=== PATIENT | male | born 1975 | race Caucasian/White ===

== ENCOUNTER 2024-10-07 14:44 | Inpatient (IN) | payer SELFPAY ==
--- NOTE | 2024-10-07 15:16 | ED ---
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 Patient typically drinks 1/5 a day. Last drink this morning. Patient denies any history of seizures or DTs with withdrawals. Patient was attempting to check into [facility] today and was found to be intoxicated and hypertensive at 210/122. Patient was given 0.3 mg of Catapres at 1:50 PM. Patient denies any current pain. Denies any SI, HI or drug use. (Carmen Langston) This is a 49 male presenting with significant alcohol intoxication sent to us from [facility] for evaluation regarding pending withdrawals DTs and history of seizure. Significant intoxication here in the ER and severely elevated blood pressure (Joe Cordova) - Related Data Home Medications Medication Instructions Recorded Confirmed Losartan [Cozaar] 50 mg PO DAILY 10/07/24 10/07/24 QUEtiapine [SEROquel] 100 mg PO HS 10/07/24 10/07/24 cloNIDine HCL [Catapres] 0.1 mg PO QID PRN 10/07/24 10/07/24 lamoTRIgine [LaMICtal] 50 mg PO BID 10/07/24 10/07/24 Previous Rx's Medication Instructions Recorded Folic Acid 1 mg PO DAILY 30 Days #30 tab 10/09/24 Thiamine [Vitamin B-1] 100 mg PO DAILY 30 Days #30 tablet 10/09/24 Allergies Allergy/AdvReac Type Severity Reaction Status Date / Time Penicillins Allergy Anaphylaxis Verified 10/07/24 16:38 Review of Systems ROS Other: All systems not noted in ROS Statement are negative. <CurtisrussCarmen - Last Filed: 10/07/24 15:15> ROS Other: All systems not noted in ROS Statement are negative. <Joe Cordova - Last Filed: 10/09/24 21:39> ROS Statement: Those systems with pertinent positive or pertinent negative responses have been documented in the HPI. Past Medical History Past Medical History: Hypertension Past Surgical History: No Surgical Hx Reported Smoking Status: Current every day smoker Past Alcohol Use History: Abuse <CurtisrussCarmen - Last Filed: 10/07/24 15:15> General Exam Limitations: no limitations <ChrisnitaCarmen - Last Filed: 10/07/24 15:15> General appearance: alert, in no apparent distress, anxious Head exam: Present: atraumatic, normocephalic, normal inspection Eye exam: Present: normal appearance, PERRL, EOMI. Absent: scleral icterus, conjunctival injection, periorbital swelling ENT exam: Present: normal exam, mucous membranes moist Neck exam: Present: normal inspection. Absent: tenderness, meningismus, lymphadenopathy Respiratory exam: Present: normal lung sounds bilaterally. Absent: respiratory distress, wheezes, rales, rhonchi, stridor Cardiovascular Exam: Present: normal rhythm, tachycardia, normal heart sounds. Absent: systolic murmur, diastolic murmur, rubs, gallop, clicks GI/Abdominal exam: Present: soft, normal bowel sounds. Absent: distended, tenderness, guarding, rebound, rigid Extremities exam: Present: normal inspection, full ROM, normal capillary refill. Absent: tenderness, pedal edema, joint swelling, calf tenderness Back exam: Present: normal inspection Neurological exam: Present: alert, oriented X3, CN II-XII intact Psychiatric exam: Present: normal affect, normal mood Skin exam: Present: warm, dry, intact, normal color. Absent: rash <Joe Cordova - Last Filed: 10/09/24 21:39> - General Exam Comments Initial Comments: Visual Physical Exam Vital signs reviewed General: Well-appearing, nontoxic, no acute distress. Intoxicated Head: Normocephalic, atraumatic Eyes: PERRLA, EOMI ENT: Airway patent Chest: Nonlabored breathing Skin: No visual rash, normal skin tone Neuro: Alert and oriented 3 Musculoskeletal: No gross abnormalities (Carmen Langston) Course <Joe Cordova - Last Filed: 10/09/24 21:39> Vital Signs 10/07/24 10/07/24 10/07/24 14:49 15:53 17:58 Temperature 98.2 F Pulse Rate 118 H 120 H 92 Respiratory 20 18 18 Rate Blood Pressure 144/91 141/89 131/105 O2 Sat by Pulse 97 95 96 Oximetry 10/07/24 10/07/24 10/08/24 18:24 20:51 00:01 Temperature Pulse Rate 102 H 104 H 95 Respiratory 18 18 14 Rate Blood Pressure 137/101 111/73 119/83 O2 Sat by Pulse 98 94 L 95 Oximetry 10/08/24 10/08/24 10/08/24 02:07 03:04 04:39 Temperature Pulse Rate 83 73 88 Respiratory 16 16 16 Rate Blood Pressure 112/80 145/95 137/94 O2 Sat by Pulse 95 98 97 Oximetry 10/08/24 10/08/24 10/08/24 05:20 06:28 07:20 Temperature Pulse Rate 85 89 95 Respiratory 16 16 18 Rate Blood Pressure 133/88 120/92 132/93 O2 Sat by Pulse 96 96 97 Oximetry 10/08/24 10/08/24 11:42 13:28 Temperature 98.8 F Pulse Rate 105 H Respiratory 18 18 Rate Blood Pressure 149/91 170/94 O2 Sat by Pulse 98 Oximetry - Reevaluation(s) Reevaluation #1: 10/07/24 19:04 Medical records reviewed (Joe Cordova) Reevaluation #2: 10/07/24 19:04 Patient symptoms relatively improved (Joe Cordova) Reevaluation #3: 10/07/24 19:04 Patient informed of results questions answered (Joe Cordova) Reevaluation #4: Was pt. sent in by a medical professional or institution (, PA, CLIP ON SUNGLASSES INSPECTOR, urgent ca re, hospital, or skilled nursing...) When possible be specific @ -no Did you speak to anyone other than the patient for history (EMS, parent, family, police, friend...)? What history was obtained from this source @ -no Did you review nursing and triage notes (agree or disagree)? Why? @ -agree Are old charts reviewed (outside hosp., previous admission, EMS record, old EKG, old radiological studies, urgent care reports/EKG's, skilled nursing records)? Report findings @ -yes Differential Diagnosis (chest pain, altered mental status, abdominal pain women, abdominal pain men, vaginal bleeding, weakness, fever, dyspnea, syncope, headache, dizziness, GI bleed, back pain, seizure, CVA, palpatations, mental health, musculoskeletal)? @ -prior EKG interpreted by me (3pts min.). @ -no X-rays interpreted by me (1pt min.). @ -no CT interpreted by me (1pt min.). @ -no U/S interpreted by me (1pt. min.). @ -no What testing was considered but not performed or refused? (CT, X-rays, U/S, labs)? Why? @ -none What meds were considered but not given or refused? Why? @ -none Did you discuss the management of the patient with other professionals (professionals i.e. , PA, CLIP ON SUNGLASSES INSPECTOR, lab, RT, psych nurse, social insurance administrator, beer runner, teacher, chief juvenile probation officer, manager case)? Give summary @ -no Was smoking cessation discussed for >3mins.? @ -no Was critical care preformed (if so, how long)? @ -no Were there social determinants of health that impacted care today? How? (Homelessness, low income, unemployed, alcoholism, drug addiction, transportation, low edu. Level, literacy, decrease access to med. care, alf, rehab)? @ -none Was there de-escalation of care discussed even if they declined (Discuss DNR or withdrawal of care, Hospice)? DNR status @ -no What co-morbidities impacted this encounter? (DM, HTN, Smoking, COPD, CAD, Cancer, CVA, ARF, Chemo, Hep., AIDS, mental health diagnosis, sleep apnea, morbid obesity)? @ -none Was patient admitted / discharged? Hospital course, mention meds given and route, prescriptions, significant lab abnormalities, going to OR and other pertinent info. @ - 49 male to the ER will be admitted for altered mental status alcohol withdrawal alcohol intoxication Discharge Undiagnosed new problem with uncertain prognosis? @ -no Drug Therapy requiring intensive monitoring for toxicity (Heparin, Nitro, Insulin, Cardizem)? @ -no Were any procedures done? @ -no Diagnosis/symptom? @ -Alcohol intoxication impending withdrawal Acute, or Chronic, or Acute on Chronic? @ -Acute Uncomplicated (without systemic symptoms) or Complicated (systemic symptoms)? @ -Complicated Side effects of treatment? @ -no Exacerbation, Progression, or Severe Exacerbation? @ -exacerbation Poses a threat to life or bodily function? How? (Chest pain, [place], [place], pneumonia, PE, COPD, DKA, ARF, appy, cholecystitis, CVA, Diverticulitis, Homicidal, Suicidal, threat to staff... and all critical care pts) @ -yes significant intoxication or withdrawal (Joe Cordova) Reevaluation #5: Differential Altered Mental Status: Hypoglycemia, DKA, hypercapnia, ETOH, overdose, CO poisoning, trauma, myxedema coma, HTN encephalopathy, infection, encephalitis, psychosis, intercranial hemorrhage, hepatic encephalopathy, meningitis, CVA, this is not meant to be an all-inclusive list (Joe Cordova) - Consultations Consultation #1: Spoke with [facility] who agrees to admit this patient (Joe Cordova) Medical Decision Making <Carmen Langston - Last Filed: 10/07/24 15:15> - Lab Data Result diagrams: 10/09/24 02:39 10/09/24 02:39 <Joe Cordova - Last Filed: 10/09/24 21:39> - Medical Decision Making I performed the quick note portion of this chart. Electronically signed by Carmen Langston PA-C (Carmen Langston) 49 male to the ER will be admitted for altered mental status alcohol withdrawal alcohol intoxication (Joe Cordova) - Lab Data Lab Results 10/07/24 10/07/24 10/07/24 Range/Units 15:30 15:30 15:39 WBC 8.9 (3.8-10.6) k/uL RBC 5.00 (4.30-5.90) m/uL Hgb 16.4 (13.0-17.5) gm/dL Hct 48.5 (39.0-53.0) % MCV 97.1 (80.0-100.0) fL MCH 32.8 (25.0-35.0) pg MCHC 33.7 (31.0-37.0) g/dL RDW 12.3 (11.5-15.5) % Plt Count 421 (150-450) k/uL MPV 6.6 Neutrophils % 63 % Lymphocytes % 29 % Monocytes % 4 % Eosinophils % 1 % Basophils % 1 % Neutrophils # 5.6 (1.3-7.7) k/uL Lymphocytes # 2.6 (1.0-4.8) k/uL Monocytes # 0.4 (0-1.0) k/uL Eosinophils # 0.1 (0-0.7) k/uL Basophils # 0.1 (0-0.2) k/uL Sodium 140 (137-145) mmol/L Potassium 4.2 (3.5-5.1) mmol/L Chloride 108 H (98-107) mmol/L Carbon Dioxide 23 (22-30) mmol/L Anion Gap 9 mmol/L BUN 11 (9-20) mg/dL Creatinine 1.10 (0.66-1.25) mg/dL Est GFR (CKD-EPI)AfAm >90 (>60 ml/min/1.73 sqM) Est GFR (CKD-EPI)NonAf 78 (>60 ml/min/1.73 sqM) Glucose 113 H (74-99) mg/dL Calcium 8.6 (8.4-10.2) mg/dL Magnesium 1.8 (1.6-2.3) mg/dL Total Bilirubin 0.6 (0.2-1.3) mg/dL AST 35 (17-59) U/L ALT 25 (4-49) U/L Alkaline Phosphatase 62 (38-126) U/L Total Protein 7.1 (6.3-8.2) g/dL Albumin 4.4 (3.5-5.0) g/dL Urine Opiates Screen Not Detected (NotDetected) Ur Oxycodone Screen Not Detected (NotDetected) Urine Methadone Screen Not Detected (NotDetected) Ur Barbiturates Screen Not Detected (NotDetected) U Tricyclic Antidepress Not Detected (NotDetected) Ur Phencyclidine Scrn Not Detected (NotDetected) Ur Amphetamines Screen Not Detected (NotDetected) U Methamphetamines Scrn Not Detected (NotDetected) U Benzodiazepines Scrn Not Detected (NotDetected) Urine Cocaine Screen Not Detected (NotDetected) U Marijuana (THC) Screen Not Detected (NotDetected) Serum Alcohol 338 H* mg/dL Disposition <Carmen Langston - Last Filed: 10/07/24 15:15> Is patient prescribed a controlled substance at d/c from ED?: No Time of Disposition: 18:00 <Joe Cordova - Last Filed: 10/09/24 21:39> Clinical Impression: Alcohol withdrawal syndrome, Alcoholic intoxication, Alcohol withdrawal delirium Disposition: ADMITTED IP TO THIS HOSP Condition: Fair
[2024-10-07 15:50] LABS: Basophils # (A) 0.1 k/uL (0-0.2); Basophils % (A) 1 %; Eosinophils # (A) 0.1 k/uL (0-0.7); Eosinophils % (A) 1 %; HCT 48.5 % (39.0-53.0); HGB 16.4 gm/dL (13.0-17.5); Lymphocytes # (A) 2.6 k/uL (1.0-4.8); Lymphocytes % (A) 29 %; MCH 32.8 pg (25.0-35.0); MCHC 33.7 g/dL (31.0-37.0); MCV 97.1 fL (80.0-100.0); Mean Platelet Volume 6.6; Monocytes # (A) 0.4 k/uL (0-1.0); Monocytes % (A) 4 %; Neutrophils # (A) 5.6 k/uL (1.3-7.7); Neutrophils % (A) 63 %; Platelet Count 421 k/uL (150-450); RDW 12.3 % (11.5-15.5); WBC 8.9 k/uL (3.8-10.6)
[2024-10-07 15:59] LABS: Amphetamine Screen,Urine Not Detected (NotDetected); Barbiturate Screen,Urine Not Detected (NotDetected); Benzodiazepines Screen,Urine Not Detected (NotDetected); Cocaine Screen,Urine Not Detected (NotDetected); Methadone Screen, Urine Not Detected (NotDetected); Opiate Screen,Urine Not Detected (NotDetected); Oxycodone Screen, Urine Not Detected (NotDetected); Phencyclidine Screen,Urine Not Detected (NotDetected); Tricyclic Antidepressant,Urine Not Detected (NotDetected); Urn Cannabinoid Scrn Not Detected (NotDetected)
[2024-10-07 16:00] LABS: ALT 25 U/L (4-49); AST 35 U/L (17-59); African American GFR (CKD) >90 (>60 ml/min/1.73 sqM); Albumin 4.4 g/dL (3.5-5.0); Alkaline Phosphatase 62 U/L (38-126); Anion Gap 9 mmol/L; Blood Urea Nitrogen 11 mg/dL (9-20); Calcium 8.6 mg/dL (8.4-10.2); Carbon Dioxide 23 mmol/L (22-30); Chloride 108 mmol/L (98-107); Glucose 113 mg/dL (74-99); Magnesium 1.8 mg/dL (1.6-2.3); Non-African American GFR(CKD) 78 (>60 ml/min/1.73 sqM); Potassium 4.2 mmol/L (3.5-5.1); Sodium 140 mmol/L (137-145); Total Bilirubin 0.6 mg/dL (0.2-1.3); Total Protein 7.1 g/dL (6.3-8.2)
[2024-10-07 16:17] LABS: Alcohol 338 mg/dL
[2024-10-07] MEDS: SODIUM CHLORIDE 0.9% 2,000 ML IV STA (16:18)
[2024-10-07] MEDS: ONDANSETRON 4 MG/2 ML VIAL IVP STA (16:18)
[2024-10-07] MEDS: LORazepam 2 MG/ML INJ IV STA ×2 (16:18→17:59)
[2024-10-07] MEDS: MAGNESIUM SULFATE-D5W PMX 1 GM in DEXTROSE/WATER 1 100ML.BAG IVPB ONE (17:04)
[2024-10-07] MEDS: MAGNESIUM OXIDE 400 MG TAB PO STA ×2 (17:05→17:06)
[2024-10-07] MEDS ORDERED: NALOXONE 0.4 MG/ML 1 ML VIAL IV PRN (17:51)
[2024-10-07] MEDS ORDERED: LORazepam 2 MG/ML INJ IV PRN ×2 (17:51)
[2024-10-07] MEDS ORDERED: ONDANSETRON 4 MG/2 ML VIAL IVP PRN (17:51)
[2024-10-07] MEDS ORDERED: LORazepam 0.5 MG TAB PO PRN (17:51)
[2024-10-07] MEDS ORDERED: LORazepam 1 MG TAB PO PRN (17:51)
[2024-10-07] MEDS: PANTOPRAZOLE 40 MG/10 ML VIAL IV SCH (18:03)
[2024-10-07] MEDS: DEXTROSE 5%-0.45% NACL 1,000 ML IV SCH (18:04)
[2024-10-07] MEDS: THIAMINE 100 MG/ML 2 ML VIAL IM STA (18:04)
[2024-10-07] MEDS: NICOTINE 21MG/24HR PATCH TRANSDERM STA (18:13)
[2024-10-07] MEDS: NICOTINE GUM (POLACRILEX) 2 MG GUM BUCCAL STA (18:43)
[2024-10-08 08:31] LABS: Basophils % (A) 1.7 %; Eosinophils # (A) 0.11 X 10*3/uL (0.04-0.35); Eosinophils % (A) 1.8 %; HCT 37.9 % (39.6-50.0); HGB 12.9 g/dL (13.0-17.0); Immature Grans, Automated 0 %; Lymphocytes # (A) 2.95 X 10*3/uL (0.90-5.00); Lymphocytes % (A) 49.4 %; MCH 33.2 pg (27.0-32.0); MCV 97.4 FL (80.0-97.0); Mean Platelet Volume 9.2 FL (9.5-12.2); Monocytes % (A) 8.4 %; NRBC Per 100 WBC 0 X 10*3/uL (0.00-0.01); Neutrophils # (A) 2.31 X 10*3/uL (1.80-7.70); Neutrophils % (A) 38.7 %; Platelet Count 264 X 10*3/uL (140-440); RBC 3.89 X 10*6/uL (4.40-5.60); RDW 12.2 % (11.5-14.5); WBC 5.97 X 10*3/uL (4.50-10.00)
[2024-10-08] MEDS: MULTIVITAMINS, THERA 1 EACH TAB PO SCH (08:33)
[2024-10-08] MEDS: FOLIC ACID 1 MG TAB PO SCH (08:33)
[2024-10-08] MEDS: LORazepam 1 MG TAB PO PRN (08:39)
[2024-10-08 08:47] LABS: ALT 18 U/L (10-49); AST 23 U/L (14-35); Albumin 3.4 g/dL (3.8-4.9); Albumin/Globulin Ratio 1.89 Ratio (1.60-3.17); Alkaline Phosphatase 49 U/L (41-126); BUN/Creat Ratio 11.09 Ratio (12.00-20.00); Blood Urea Nitrogen 12.2 mg/dL (9.0-27.0); Calcium 7.6 mg/dL (8.7-10.3); Carbon Dioxide 24.3 mmol/L (21.6-31.8); Chloride 107 mmol/L (96-109); Globulin 1.8 g/dL (1.6-3.3); Glucose 89 mg/dL (70-110); Phosphorus 3.1 mg/dL (2.4-5.1); Potassium 3.9 mmol/L (3.5-5.5); Sodium 141 mmol/L (135-145); Total Bilirubin 0.2 mg/dL (0.3-1.2); Total Protein 5.2 g/dL (6.2-8.2)
[2024-10-08] MEDS ORDERED: cloNIDine HCL 0.1 MG TAB PO PRN (12:20)
[2024-10-08] MEDS: LORazepam 2 MG/ML INJ IV PRN (13:23)
--- NOTE | 2024-10-08 13:37 | P.HPIM ---
History of Present Illness H&P Date: 10/08/24 History of present illness: 49-year-old male patient with past medical history significant for hypertension, alcohol use disorder who presented to ER with a chief complaint of alcohol intoxication. Patient stated that he typically drinks 1/5 of alcohol a day, last drink was yesterday morning. Patient denied any history of hospitalization, seizures or DTs with withdrawal. Patient stated that he was attempting to check into the alcohol rehab was found to be intoxicated and hypotensive with blood pressure at 210/122. Patient denied any fever, chills, sore throat, productive cough, shortness of breath, chest pain, palpitations, nausea vomiting diarrhea constipation abdominal pain dysuria urgency frequency weakness or numbness of lower extremities. In the ED patient afebrile, heart rate elevated 105, respiratory rate 18, blood pressure 170/94, saturating 98% on room air. WBC 5.9 on presentation, hemoglobin 16.4, platelet 421. BMP was unremarkable. Serum alcohol level was 338. LFTs unremarkable. REVIEW OF SYSTEMS: CONSTITUTIONAL: Complains of anxiety and tremors. HEENT: No recent visual problems or hearing problems. Denied any sore throat. CARDIOVASCULAR: No chest pain, orthopnea, PND, no palpitations, no syncope. PULMONARY: No shortness of breath, no cough, no hemoptysis. GASTROINTESTINAL: No diarrhea, no nausea, no vomiting, no abdominal pain. NEUROLOGICAL: No headaches, no weakness, no numbness. HEMATOLOGICAL: Denies any bleeding or petechiae. GENITOURINARY: Denies any burning micturition, frequency, or urgency. MUSCULOSKELETAL/RHEUMATOLOGICAL: Denies any joint pain, swelling, or any muscle pain. ENDOCRINE: Denies any polyuria or polydipsia. The rest of the 14-point review of systems is negative. PHYSICAL EXAMINATION: GENERAL: The patient is A&O x3, chills, tremulous HEENT: EOMI, Sclerae anicteric, Moist Mucous membranes Neck: Supple, Non tender, No JVD PULMONARY: Equal breath souds B/L, No wheezing, No crackles. CARDIOVASCULAR: S1, S2 present. No murmurs, rubs, or gallops. ABDOMEN: Soft, nontender, nondistended, normoactive bowel sounds. No guarding or rebound tenderness. MUSCULOSKELETAL: No edema, No cyanosis. No clubbing. Normal ROM. Intact peripheral pulses. NEUROLOGICAL: CN 2-12 grossly intact. No FND Assessment and plan: Alcohol intoxication with high risk of withdrawal: Presented with alcohol intoxication, drinks 1/5 of alcohol a day last drink yesterday morning. Monitor with CIWA protocol with as needed Ativan Thiamine, folic acid Case management consult Neurochecks Hypertension: History of a blood pressure, continue clonidine, losartan Bipolar disorder resume home meds Seroquel, Lamictal. DVT prophylaxis Subcutaneous Lovenox Monitor vital signs and labs Labs and medication were reviewed. Continue same treatment. Further recommendations as per clinical course of the patient Dictation was produced using [employer] dictation software. please excuse any grammatical, word or spelling errors. Past Medical History Past Medical History: Hypertension Past Surgical History: No Surgical Hx Reported Smoking Status: Current every day smoker Past Alcohol Use History: Abuse Medications and Allergies Home Medications Medication Instructions Recorded Confirmed Type Losartan [Cozaar] 50 mg PO DAILY 10/07/24 10/07/24 History QUEtiapine [SEROquel] 100 mg PO HS 10/07/24 10/07/24 History cloNIDine HCL [Catapres] 0.1 mg PO QID PRN 10/07/24 10/07/24 History lamoTRIgine [LaMICtal] 50 mg PO BID 10/07/24 10/07/24 History Allergies Allergy/AdvReac Type Severity Reaction Status Date / Time Penicillins Allergy Anaphylaxis Verified 10/07/24 16:38 Physical Exam Vitals: Vital Signs Temp Pulse Resp BP Pulse Ox 10/08/24 13:28 98.8 F 105 H 18 170/94 98 10/08/24 11:42 18 149/91 10/08/24 07:20 95 18 132/93 97 10/08/24 06:28 89 16 120/92 96 10/08/24 05:20 85 16 133/88 96 10/08/24 04:39 88 16 137/94 97 10/08/24 03:04 73 16 145/95 98 10/08/24 02:07 83 16 112/80 95 10/08/24 00:01 95 14 119/83 95 10/07/24 20:51 104 H 18 111/73 94 L 10/07/24 18:24 102 H 18 137/101 98 10/07/24 17:58 92 18 131/105 96 10/07/24 15:53 120 H 18 141/89 95 10/07/24 14:49 98.2 F 118 H 20 144/91 97 Results CBC & Chem 7: 10/08/24 03:44 10/08/24 03:44 Labs: Abnormal Lab Results - Last 24 Hours (Table) 10/07/24 10/08/24 10/08/24 Range/Units 15:30 03:44 03:44 RBC 3.89 L (4.40-5.60) X 10*6/uL Hgb 12.9 L (13.0-17.0) g/dL Hct 37.9 L (39.6-50.0) % MCV 97.4 H (80.0-97.0) FL MCH 33.2 H (27.0-32.0) pg MPV 9.2 L (9.5-12.2) FL Chloride 108 H (98-107) mmol/L BUN/Creatinine Ratio 11.09 L (12.00-20.00) Ratio Glucose 113 H (74-99) mg/dL Calcium 7.6 L (8.7-10.3) mg/dL Total Bilirubin 0.2 L (0.3-1.2) mg/dL Total Protein 5.2 L (6.2-8.2) g/dL Albumin 3.4 L (3.8-4.9) g/dL Serum Alcohol 338 H* mg/dL
[2024-10-08] MEDS ORDERED: Potassium Replacement Protocol 1 EACH MISC MISCELLANE PRN (13:38)
[2024-10-08] MEDS ORDERED: Magnesium Replacement Protocol 1 EACH MISC MISCELLANE PRN (13:38)
[2024-10-08] MEDS: NICOTINE 14MG/24HR PATCH TRANSDERM SCH (13:57)
[2024-10-08] MEDS: LOSARTAN 50 MG TAB PO SCH (13:58)
[2024-10-08] MEDS: lamoTRIgine 25 MG TAB PO SCH (14:48)
[2024-10-08] MEDS: QUEtiapine 100 MG TAB PO SCH (21:36)
[2024-10-09 03:13] VITALS: RESP 17
[2024-10-09] MEDS: PANTOPRAZOLE 40 MG TABLET PO SCH (06:23)
[2024-10-09 08:41] LABS: Basophils # (A) 0.08 X 10*3/uL (0.00-0.10); Basophils % (A) 1.2 %; Eosinophils # (A) 0.31 X 10*3/uL (0.04-0.35); Eosinophils % (A) 4.7 %; HCT 39.9 % (39.6-50.0); HGB 13.4 g/dL (13.0-17.0); Lymphocytes # (A) 2.54 X 10*3/uL (0.90-5.00); Lymphocytes % (A) 38.8 %; MCH 33.1 pg (27.0-32.0); MCHC 33.6 g/dL (32.0-37.0); MCV 98.5 FL (80.0-97.0); Mean Platelet Volume 9.7 FL (9.5-12.2); Monocytes # (A) 0.39 X 10*3/uL (0.20-1.00); NRBC Per 100 WBC 0 X 10*3/uL (0.00-0.01); Neutrophils # (A) 3.21 X 10*3/uL (1.80-7.70); Neutrophils % (A) 49.1 %; Platelet Count 239 X 10*3/uL (140-440); RBC 4.05 X 10*6/uL (4.40-5.60); WBC 6.54 X 10*3/uL (4.50-10.00)
[2024-10-09 08:56] LABS: Magnesium 2.1 mg/dL (1.5-2.4)
[2024-10-09 08:59] LABS: ALT 20 U/L (10-49); AST 30 U/L (14-35); Albumin 3.5 g/dL (3.8-4.9); Albumin/Globulin Ratio 1.94 Ratio (1.60-3.17); Alkaline Phosphatase 59 U/L (41-126); BUN/Creat Ratio 8.55 Ratio (12.00-20.00); Blood Urea Nitrogen 9.4 mg/dL (9.0-27.0); Calcium 8.3 mg/dL (8.7-10.3); Carbon Dioxide 23.2 mmol/L (21.6-31.8); Chloride 107 mmol/L (96-109); Globulin 1.8 g/dL (1.6-3.3); Glucose 89 mg/dL (70-110); Potassium 4.1 mmol/L (3.5-5.5); Sodium 140 mmol/L (135-145); Total Bilirubin 1.1 mg/dL (0.3-1.2); Total Protein 5.3 g/dL (6.2-8.2)
[2024-10-09 09:13] VITALS: BP 187/108; PULSE 103; TEMP 97.4
[2024-10-09] MEDS: ENOXAPARIN 40 MG/0.4 ML SYRINGE SQ SCH (09:14)
[2024-10-09] MEDS: LORazepam 1 MG TAB PO PRN (11:21)
[2024-10-09] MEDS ORDERED: MULTIVITAMINS, THERA 1 EACH TAB PO SCH (12:00)
--- NOTE | 2024-10-09 14:41 | P.DS ---
Providers Date of admission: 10/07/24 17:53 Expected date of discharge: 10/09/24 Attending physician: Moises Anthony Primary care physician: Stated None Hospital Course: Discharge diagnoses; Alcohol intoxication with high risk of withdrawal: Being discharged on thiamine and folic acid Hypertension: continue clonidine, losartan Bipolar disorder Continue Seroquel, Lamictal. Hospital course; 49-year-old male patient with past medical history significant for hypertension, alcohol use disorder who presented to ER with a chief complaint of alcohol intoxication. Patient stated that he typically drinks 1/5 of alcohol a day, last drink was yesterday morning. Patient denied any history of hospitalization, seizures or DTs with withdrawal. Patient stated that he was attempting to check into the alcohol rehab was found to be intoxicated and hypotensive with blood pressure at 210/122. Patient denied any fever, chills, sore throat, productive cough, shortness of breath, chest pain, palpitations, nausea vomiting diarrhea constipation abdominal pain dysuria urgency frequency weakness or numbness of lower extremities. In the ED patient afebrile, heart rate elevated 105, respiratory rate 18, blood pressure 170/94, saturating 98% on room air. WBC 5.9 on presentation, hemoglobin 16.4, platelet 421. BMP was unremarkable. Serum alcohol level was 338. LFTs unremarkable. PHYSICAL EXAMINATION: GENERAL: The patient is alert and oriented x3, not in any acute distress. Well developed, well nourished. HEENT: Pupils are round and equally reacting to light. EOMI. No scleral icterus. No conjunctival pallor. Normocephalic, atraumatic. No pharyngeal erythema. No thyromegaly. CARDIOVASCULAR: S1 and S2 present. No murmurs, rubs, or gallops. PULMONARY: Chest is clear to auscultation, no wheezing or crackles. ABDOMEN: Soft, nontender, nondistended, normoactive bowel sounds. No palpable organomegaly. MUSCULOSKELETAL: No joint swelling or deformity. EXTREMITIES: No cyanosis, clubbing, or pedal edema. NEUROLOGICAL: Gross neurological examination did not reveal any focal deficits. SKIN: No rashes. Dictation was produced using [email or web address] dictation software. please excuse any grammatical, word or spelling errors. Patient Condition at Discharge: Fair Plan - Discharge Summary Discharge Rx Participant: No New Discharge Prescriptions: New Folic Acid 1 mg PO DAILY 30 Days #30 tab Thiamine [Vitamin B-1] 100 mg PO DAILY 30 Days #30 tablet Continue QUEtiapine [SEROquel] 100 mg PO HS cloNIDine HCL [Catapres] 0.1 mg PO QID PRN PRN Reason: Blood Pressure lamoTRIgine [LaMICtal] 50 mg PO BID Losartan [Cozaar] 50 mg PO DAILY Discharge Medication List Losartan [Cozaar] 50 mg PO DAILY 10/07/24 [History] QUEtiapine [SEROquel] 100 mg PO HS 10/07/24 [History] cloNIDine HCL [Catapres] 0.1 mg PO QID PRN 10/07/24 [History] lamoTRIgine [LaMICtal] 50 mg PO BID 10/07/24 [History] Folic Acid 1 mg PO DAILY 30 Days #30 tab 10/09/24 [Rx] Thiamine [Vitamin B-1] 100 mg PO DAILY 30 Days #30 tablet 10/09/24 [Rx] Follow up Appointment(s)/Referral(s): [facility] [NON-STAFF] - 1 Week [facility] [NON-STAFF] - 1 Week None,Stated [Primary Care Provider] - 1-2 days Discharge/Stand Alone Forms: Area PCPs Discharge Disposition: HOME SELF-CARE
== END 2024-10-09 12:52 | disposition home or self-care (01) | DRG 897 ==
LOC: EC 14:44 → 4SSUR 17:53
PROVIDERS: ADMIT Hospitalist; ATTEND Hospitalist
DX: F10.231 Alcohol dependence with withdrawal delirium (principal); I10 Essential (primary) hypertension; F10.229 Alcohol dependence with intoxication, unspecified; F31.9 Bipolar disorder, unspecified; F17.210 Nicotine dependence, cigarettes, uncomplicated; Y90.8 Blood alcohol level of 240 mg/100 ml or more; Z88.0 Allergy status to penicillin; Z79.899 Other long term (current) drug therapy
CPT/HCPCS: 36415; 80053; 80306; 80320; 83735; 84100; 85025; 96361; 96365; 96372; 96375; 96376; 99285